=== PATIENT | male | born 1970 | race Caucasian/White ===

== ENCOUNTER 2023-02-21 09:21 | Day surgery (SDC) | payer OTHER ==
[~2023-02-21] VITALS: Ht 165.1 cm; Wt 81.6 kg
[2023-02-21] MEDS ORDERED: fentaNYL citrate 0.05 MG/ML VIAL ONE (10:40)
[2023-02-21] MEDS ORDERED: LIDOCAINE 2% 100 MG/5 ML UJET TP ONE (10:40)
[2023-02-21] MEDS ORDERED: fentaNYL citrate 0.05 MG/ML VIAL IVP ONE (11:00)
== END 2023-02-21 12:10 | disposition home or self-care (01) ==
LOC: MDS 09:21 → MMU 09:22 → MDS 12:10
PROVIDERS: ATTEND Internal Medicine Gastroenterology
DX: Z12.11 Encounter for screening for malignant neoplasm of colon (principal); K57.30 Diverticulosis of large intestine without perforation or abscess without bleeding; K64.9 Unspecified hemorrhoids; E11.9 Type 2 diabetes mellitus without complications; I10 Essential (primary) hypertension; K21.9 Gastro-esophageal reflux disease without esophagitis; Z79.899 Other long term (current) drug therapy
CPT/HCPCS: 45378; J3010